=== PATIENT | female | born 1945 | race Two or more races ===

== ENCOUNTER 2016-10-24 20:16 | Emergency (ER) | payer MEDICARE, OTHER ==
[~2016-10-24] VITALS: Ht 160 cm; Wt 79.5 kg
[2016-10-24 20:23] VITALS: BP 178/105; PULSE 87; RESP 16; TEMP 98.3; O2SAT 98
--- NOTE | 2016-10-24 20:27 | PD ---
HPI Chief Complaint: Fall Time Seen by Provider: 20:23 Travel History International Travel<30 days: Yes Contact w/Intl Traveler<30days: Yes Name of Country Traveled to: [place] Traveled to known affect area: No History of Present Illness HPI This 71-year-old female fell forward and hit the left side of her face. She did not have a loss of consciousness. She is complaining of pain in the left forehead the face and the neck. She is also having pain in both of her knees and her left shoulder. She was not able to get up after the fall. She does not take any medication. She is on no blood thinner. [facility] Social History Tobacco Use: No Allergies-Medications (Allergen,Severity, Reaction): Coded Allergies: Codeine (Verified Allergy, Intermediate, 10/24/16) Reported Meds & Prescriptions Reported Meds & Active Scripts Active Reported Ketorolac (Ketorolac Tromethamine) 10 Mg Tab 30 Mg PO BID Orphenadrine CR (Orphenadrine Citrate) 100 Mg Tab 100 Mg PO DAILY Review of Systems General / Constitutional: No: Fever, Chills HENT: Positive: Headaches Cardiovascular: No: Chest Pain or Discomfort Respiratory: No: Cough Physical Exam Narrative GENERAL: Well-developed female SKIN: Focused skin assessment warm/dry. HEAD: Atraumatic. Normocephalic. EYES: Pupils equal and round. No scleral icterus. No injection or drainage. ENT: No nasal bleeding or discharge. Mucous membranes pink and moist. She complains of tenderness in the left cheek bone and the left-sided forehead. The palpable deformity pupils are round and reactive NECK: Trachea midline. No JVD. She is tender in the posterior neck CARDIOVASCULAR: Regular rate and rhythm. No murmur appreciated. RESPIRATORY: No accessory muscle use. Clear to auscultation. Breath sounds equal bilaterally. GASTROINTESTINAL: Abdomen soft, non-tender, nondistended. Hepatic and splenic margins not palpable. MUSCULOSKELETAL: No obvious deformities. No clubbing. No cyanosis. No edema. She complains of tenderness with palpation of both knees. I am able to flex and extend the knees NEUROLOGICAL: Awake and alert. No obvious cranial nerve deficits. Motor grossly within normal limits. Normal speech. PSYCHIATRIC: Appropriate mood and affect; insight and judgment normal. Data Data Last Documented VS Vital Signs Date Time Temp Pulse Resp B/P Pulse Ox O2 Delivery O2 Flow Rate FiO2 3/30/17 21:29 95 134/61 Room Air 10/24/16 20:[address] Brain W/O Iv Contrast(Rout) (10/24/16 20:23) Ct Cerv Spine W/O Contrast (10/24/16 20:23) Ct Facial Bones W/O Iv Cont (10/24/16 20:23) Knee, Ltd (1 Or 2vws) (10/24/16 20:23) Shoulder, Complete (>2vws) (10/24/16 20:23) Knee, Ltd (1 Or 2vws) (10/24/16 20:23) MDM Medical Decision Making Medical Screen Exam Complete: Yes Emergency Medical Condition: Yes Medical Record Reviewed: Yes Differential Diagnosis Differential includes skull fracture, facial fracture, subdural, shoulder fracture, knee fracture Narrative Course CT scans of the head face and cervical spine are all negative. X-rays of the knees and shoulder are negative. patient is stable for discharge. Diagnosis Primary Impression: Multiple contusions Scripts Ketorolac 10 Mg Tab10 Mg PO Q6HR PRN (PAIN) #30 TAB Ref 0 Prov:Maciel Lozoya MD 10/24/16 Disposition: 01 DISCHARGE HOME Condition: Stable Maciel Lozoya MD Oct 24, 2016 20:27
[2016-10-24] MEDS ORDERED: ORPH100T99 PO (20:35)
[2016-10-24] MEDS ORDERED: KETO10 PO ×2 (20:35→22:27)
--- NOTE | 2016-10-24 20:44 | RADHPO ---
EXAM DATE/TIME: 10/24/2016 20:33 [facility] COMPARISON: No previous studies available for comparison. INDICATIONS : Fall, complains of left shoulder pain. MEDICAL HISTORY : None. SURGICAL HISTORY : None. ENCOUNTER: Initial ACUITY: 1 day PAIN SCORE: 4/10 LOCATION: Left shoulder FINDINGS: Multiple view examination of the left shoulder demonstrates no evidence of fracture or dislocation. The glenohumeral and acromioclavicular joints are maintained. There is normal range of motion betwee n internal and external rotation. Minimal degenerative changes are noted involving the left acromioc lavicular and glenohumeral joints. Bony mineralization is normal. CONCLUSION: No acute fracture or dislocation. Minimal degenerative changes involving the left acromioclavicular a nd glenohumeral joints. Bobby Guthrie MD on October 24, 2016 at 20:42 Board Certified Radiologist. This report was verified electronically.
--- NOTE | 2016-10-24 21:08 | RADHPO ---
EXAM DATE/TIME: 10/24/2016 20:48 [facility] COMPARISON: No previous studies available for comparison. INDICATIONS : Fall. Left frontal pain. RADIATION DOSE: 55.43 CTDIvol (mGy) MEDICAL HISTORY : None SURGICAL HISTORY : None. ENCOUNTER: Initial ACUITY: 1 day PAIN SCALE: 10/10 LOCATION: Left frontal TECHNIQUE: Multiple contiguous axial images were obtained of the head. Using automated exposure control and adj ustment of the mA and/or kV according to patient size, radiation dose was kept as low as reasonably a chievable to obtain optimal diagnostic quality images. FINDINGS: CEREBRUM: The ventricles are normal for age. No evidence of midline shift, mass lesion, hemorrhage or acute in farction. No extra-axial fluid collections are seen. POSTERIOR FOSSA: The cerebellum and brainstem are intact. The 4th ventricle is midline. The cerebellopontine angle i s unremarkable. EXTRACRANIAL: The visualized portion of the orbits is intact. SKULL: The calvaria is intact. No evidence of skull fracture. CONCLUSION: No acute disease. Bobby Guthrie MD on October 24, 2016 at 21:06 Board Certified Radiologist. This report was verified electronically.
--- NOTE | 2016-10-24 21:13 | RADHPO ---
EXAM DATE/TIME: 10/24/2016 20:34 [facility] COMPARISON: No previous studies available for comparison. INDICATIONS : Fall. Left knee pain. MEDICAL HISTORY : None. SURGICAL HISTORY : None. ENCOUNTER: Initial ACUITY: 1 day PAIN SCORE: 4/10 LOCATION: Left knee FINDINGS: Mild degenerative changes are noted involving the patellofemoral and medial femorotibial joints. Ther e is no acute fracture or dislocation. No knee joint effusion is noted. CONCLUSION: 1. Mild degenerative changes involving the patellofemoral and medial femorotibial joints. 2. No acute fracture, dislocation or knee joint effusion. Bobby Guthrie MD on October 24, 2016 at 21:04 Board Certified Radiologist. This report was verified electronically.
--- NOTE | 2016-10-24 21:14 | RADHPO ---
EXAM DATE/TIME: 10/24/2016 20:39 [facility] COMPARISON: No previous studies available for comparison. INDICATIONS : Fall. Complains of right knee pain. MEDICAL HISTORY : None. SURGICAL HISTORY : None. ENCOUNTER: Initial ACUITY: 1 day PAIN SCORE: 4/10 LOCATION: Right knee FINDINGS: Mild to moderate degenerative changes are noted involving the patellofemoral and femorotibial joints. There is no acute fracture or dislocation of the right knee. No knee joint effusion is noted. CONCLUSION: 1. Mild to moderate degenerative changes involving the patellofemoral and femorotibial joints. 2. No acute fracture, dislocation, or knee joint effusion. Bobby Guthrie MD on October 24, 2016 at 21:05 Board Certified Radiologist. This report was verified electronically.
--- NOTE | 2016-10-24 21:27 | RADHPO ---
EXAM DATE/TIME: 10/24/2016 20:48 [facility] COMPARISON: No previous studies available for comparison. INDICATIONS : Left facial pain post fall. RADIATION DOSE: 25.54 CTDIvol (mGy) MEDICAL HISTORY : None SURGICAL HISTORY : None. ENCOUNTER: Initial ACUITY: 1 day PAIN SCORE: 10/10 LOCATION: Left facial TECHNIQUE: Volumetric scanning of the facial bones was performed. Using automated exposure control and adjustme nt of the mA and/or kV according to patient size, radiation dose was kept as low as reasonably achiev able to obtain optimal diagnostic quality images. FINDINGS: ORBITS: The orbital and infraorbital osseous structures are intact. The retroconal structures have a normal configuration. No radiopaque foreign bodies are seen. NASAL BONE: The nasal bone and maxillary spine are intact ZYGOMATIC ARCHES: Symmetric without evidence of fracture. SINUSES: The maxillary, ethmoid and frontal sinuses are intact. No air-fluid levels seen. NASAL CAVITY: The nasal septum is intact and midline. The lacrimal ducts are intact. SOFT TISSUES: No radiopaque foreign bodies seen. No soft-tissue swelling is seen. INTRACRANIAL: No intracranial air seen. CRIBIFORM PLATE: Grossly intact. CONCLUSION: No acute disease. Bobby Guthrie MD on October 24, 2016 at 21:24 Board Certified Radiologist. This report was verified electronically.
--- NOTE | 2016-10-24 21:28 | RADHPO ---
EXAM DATE/TIME: 10/24/2016 20:48 [facility] COMPARISON: No previous studies available for comparison. INDICATIONS : Fall. Left neck pain. RADIATION DOSE: 25.70 CTDIvol (mGy) MEDICAL HISTORY : None SURGICAL HISTORY : None. ENCOUNTER: Initial ACUITY: 1 day PAIN SCALE: 10/10 LOCATION: Left neck TECHNIQUE: Volumetric scanning of the cervical spine was performed. Multiplanar reconstructions in the sagittal, coronal and oblique axial planes were performed. Using automated exposure control and adjustment o f the mA and/or kV according to patient size, radiation dose was kept as low as reasonably achievable to obtain optimal diagnostic quality images. FINDINGS: There is no acute fracture or prevertebral soft tissue swelling. Cervical spondylosis is noted at C5 -6 and C6-7. The bony relationship and alignment between C1 and C2 is well maintained. There is no bony spinal canal stenosis. No focal disc herniation is noted. No significant neural foraminal narr owing is noted. CONCLUSION: 1. No acute fracture or prevertebral soft tissue swelling. 2. Cervical spondylosis at C5-6 and C6-7. 3. No significant bony spinal canal stenosis or neural foraminal narrowing. Bobby Guthrie MD on October 24, 2016 at 21:21 Board Certified Radiologist. This report was verified electronically.
[2016-10-24 21:29] VITALS: BP 134/61; PULSE 95
[2016-10-24] MEDS ORDERED: KETOROLAC TROMETHAMINE 60 MG/2 ML (IM) VIAL IM ONE (22:30)
[2016-10-24 22:38] VITALS: BP 134/82
== END 2016-10-24 22:51 | disposition home or self-care (01) ==
LOC: PHED 20:16
DX: T14.8 Other injury of unspecified body region (principal); M25.512 Pain in left shoulder; R51 Headache; M54.2 Cervicalgia; M25.562 Pain in left knee; M25.561 Pain in right knee; W19.XXXA Unspecified fall, initial encounter
CPT/HCPCS: 70450; 70486; 72125; 73030; 73560; 96372; 99284; J1885